=== PATIENT | female | born 1980 | race Caucasian/White ===

== ENCOUNTER → 2017-02-14 | Outpatient (CLI) | payer OTHER | LOC: HPND 08:29 | PROVIDERS: ATTEND Obstetrics & Gynecology | DX: O09.521 Supervision of elderly multigravida, first trimester (principal) | CPT/HCPCS: 36415; 76813 ==

== ENCOUNTER → 2017-03-21 | Outpatient (CLI) | payer OTHER | LOC: HPND 07:39 | PROVIDERS: ATTEND Obstetrics & Gynecology | DX: O09.521 Supervision of elderly multigravida, first trimester (principal); O26.891 Other specified pregnancy related conditions, first trimester | CPT/HCPCS: 76811 ==

== ENCOUNTER → 2017-05-10 | Outpatient (CLI) | payer OTHER | LOC: HPND 07:50 | PROVIDERS: ATTEND Obstetrics & Gynecology | DX: O09.522 Supervision of elderly multigravida, second trimester (principal); Z14.8 Genetic carrier of other disease | CPT/HCPCS: 76816 ==

== ENCOUNTER 2017-08-27 08:08 | Inpatient (IN) | payer OTHER ==
[2017-08-27] VITALS (73 sets, daily range): BP systolic 120–166; BP diastolic 69–101; PULSE 65–134; RESP 14–18; TEMP 97.2–98.3
[~2017-08-27] VITALS: Ht 177.8 cm; Wt 116.0 kg
[2017-08-27] MEDS ORDERED: MINERAL OIL 10 ML VIAL TOPICAL PRN (08:15)
[2017-08-27] MEDS ORDERED: LIDOCAINE HCL 1% 50 ML VIAL I-DERMAL PRN (08:15)
[2017-08-27] MEDS ORDERED: CITRIC ACID-SODIUM CITRATE LIQ 30 ML UDC PO SCH (08:15)
[2017-08-27] MEDS ORDERED: SODIUM CHLORID 0.9% 500 ML INJ 500 ML IV PRN (08:15)
[2017-08-27] MEDS ORDERED: LACTATED RINGER'S 1000 ML INJ 1,000 ML IV SCH (08:15)
[2017-08-27] MEDS ORDERED: LIDOCAINE HCL 1% 50 ML VIAL INFIL PRN (08:15)
[2017-08-27] MEDS ORDERED: LACTATED RINGER'S 1000 ML INJ 1,000 ML IV PRN (08:15)
--- NOTE | 2017-08-27 08:28 | HHI.HP ---
HPI Chief Complaint induction at 41 weeks Date Seen: Aug 27, 2017 Time Seen: 08:20 Travel History International Travel<30 Days: No Contact w/Intl Traveler<30Days: No Known Affected Area: No History of Present Illness HPI 37 yo G0 who is 41 weeks here for induction of labor. She was due 08/20/17 and has had very few contractions Weeks Gestation: 41 Para: 0 : 1 History Past Medical History Narrative Medical questionable HSV Obstetric History Obstetric History G0 Past Surgical History Narrative Surgical breast augment Family History Family History: Negative Social History Alcohol Use: No Tobacco Use: No Substance Abuse: No Allergies-Medications (Allergen,Severity, Reaction): Coded Allergies: Penicillins (Verified Allergy, Unknown, 08/27/17) Sulfa (Sulfonamide Antibiotics) (Verified Allergy, Unknown, 08/27/17) Review of Systems Except as stated in HPI: all other systems reviewed are Neg Physical Exam Narrative GENERAL: Well-nourished, well-developed patient. SKIN: Warm and dry. HEAD: Normocephalic and atraumatic. EYES: No scleral icterus. No injection or drainage. ENT: No nasal drainage noted. Mucous membranes pink. Airway patent. NECK: Supple, trachea midline. No JVD. CARDIOVASCULAR: Regular rate and rhythm without murmurs, gallops, or rubs. RESPIRATORY: Breath sounds equal bilaterally. No accessory muscle use. BREASTS: Bilateral exam showed no masses , no retractions, no nipple discharge. ABDOMEN/GI: Abdomen soft, non-tender, bowel sounds present, no rebound, no guarding Gravid to 41 weeks size Fundal Height: [-] GENITOURINARY: External Genitalia: intact and normal in appearance BUS glands: [-] Cervix: [-] Dilatation: 1 Effacement: 70 Station: -2 Presentation: vtx Membranes: [intact Uterine Contractions: no FHT's: Category: 1 Baseline: [-] Reactive: [-] Variability: [-] Decels: [-] EXTREMITIES: No cyanosis or edema. BACK: Nontender without obvious deformity. No CVA tenderness. NEUROLOGICAL: Awake and alert. Motor and sensory grossly within normal limits. Five out of 5 muscle strength in all muscle groups. Normal speech. Caprini VTE Risk Assessment Caprini VTE Risk Assessment: No/Low Risk (score <= 1) Caprini Risk Assessment Model Point Value = 1 Point Value = 2 Point Value = 3 Point Value = 5 Age 41-60 Minor surgery BMI > 25 kg/m2 Swollen legs Varicose veins or History of unexplained or recurrent spontaneous Oral contraceptives or hormone replacement Sepsis (< 1 month) Serious lung disease, including pneumonia (< 1 month) Abnormal pulmonary function Acute myocardial infarction Congestive heart failure (< 1 month) History of inflammatory bowel disease Medical patient at bed rest Age 61-74 Arthroscopic surgery Major open surgery (> 45 min) Laparoscopic surgery (> 45 min) Malignancy Confined to bed (> 72 hours) Immobilizing plaster cast Central venous access Age >= 75 History of VTE Family history of VTE Factor V Leiden Prothrombin [id number] Lupus anticoagulant Anticardiolipin antibodies Elevated serum homocysteine Heparin-induced thrombocytopenia Other congenital or acquired thrombophilia Stroke (< 1 month) Elective arthroplasty Hip, pelvis, or leg fracture Acute spinal cord injury (< 1 month) Prophylaxis Regimen Total Risk Factor Score Risk Level Prophylaxis Regimen 0-1 Low Early ambulation 2 Moderate Order ONE of the following: *Sequential Compression Device (SCD) *Heparin 5000 units SQ BID 3-4 Higher Order ONE of the following medications: *Heparin 5000 units SQ TID *Enoxaparin/Lovenox 40 mg SQ daily (WT < 150 kg, CrCl > 30 mL/min) *Enoxaparin/Lovenox 30 mg SQ daily (WT < 150 kg, CrCl > 10-29 mL/min) *Enoxaparin/Lovenox 30 mg SQ BID (WT < 150 kg, CrCl > 30 mL/min) AND/OR *Sequential Compression Device (SCD) 5 or more Highest Order ONE of the following medications: *Heparin 5000 units SQ TID (Preferred with Epidurals) *Enoxaparin/Lovenox 40 mg SQ daily (WT < 150 kg, CrCl > 30 mL/min) *Enoxaparin/Lovenox 30 mg SQ daily (WT < 150 kg, CrCl > 10-29 mL/min) *Enoxaparin/Lovenox 30 mg SQ BID (WT < 150 kg, CrCl > 30 mL/min) AND *Sequential Compression Device (SCD) Data Data Vital Signs Reviewed: Yes Orders Orders Admit To Inpatient (08/27/17 ) Code Status (08/27/17 08:15) Vital Signs (Adult) .Per protocol (08/27/17 08:15) Heart (08/27/17 08:15) Amnioinfusion (08/27/17 08:15) Urinary Catheter Management .ONCE (08/27/17 08:15) Lactated Ringer's 1000 Ml Inj (Lr 1000 M (08/27/17 08:15) Lactated Ringer's 1000 Ml Inj (Lr 1000 M (08/27/17 08:15) Sodium Chlorid 0.9% 500 Ml Inj (Ns 500 M (08/27/17 08:15) Sodium Chlor 0.9% 1000 Ml Inj (Ns 1000 M (08/27/17 08:35) Lidocaine 1% Inj (50 Ml) (Xylocaine 1% I (08/27/17 08:15) Citric Acid-Sodium Citrate Liq (Bicitra (08/27/17 08:15) Fentanyl Inj (Fentanyl Inj) (08/27/17 08:15) Fentanyl Inj (Fentanyl Inj) (08/27/17 08:15) Complete Blood Count With Diff (08/27/17 08:15) Hold Clot (08/27/17 08:15) Abo/Rh Blood Type (08/27/17 08:15) Urinalysis - C+S If Indicated (08/27/17 08:15) Drug Screen, Random Urine (08/27/17 08:15) Ob/Psych Drug Screen, Urine (08/27/17 08:15) Resp Oxygen Non Rebreathe Mask (08/27/17 ) ^ Epidural / Intrathecal Infus (08/27/17 08:15) Oxytocin 30 Units-500ml Premix (Pitocin (08/27/17 08:15) Lidocaine 1% Inj (50 Ml) (Xylocaine 1% I (08/27/17 08:15) Light Mineral Oil (Muri-Lube Oil) (08/27/17 08:15) Inpatient Certification (08/27/17 ) Specimen To Be Collected PRN (08/27/17 08:15) Specimen To Be Collected PRN (08/27/17 08:15) Group B Strep: Negative Assessment/Plan Problem List: (1) 41 weeks gestation of ICD Codes: Z3A.41 - 41 weeks gestation of Assessment and Plan induction for post dates Jamie Cisneros MD Aug 27, 2017 08:28
[2017-08-27] MEDS ORDERED: SODIUM CHLOR 0.9% 1000 ML INJ 1,000 ML IV PRN (08:35)
[2017-08-27] MEDS ORDERED: OXYTOCIN 30 UNITS-500ML PREMIX 500 ML IV ONE (09:00)
--- NOTE | 2017-08-27 09:09 | PD.LABORPN ---
Subjective Subjective doing well Objective Vital Signs Vital Signs Date Time Temp Pulse Resp B/P (MAP) Pulse Ox O2 Delivery O2 Flow Rate FiO2 08/27/17 08:52 74 151/101 (118) Objective Pelvic Exam: Cervix: [-] Dilatation: 2 Effacement: 90 Station: [-] Presentation: vtx Membranes: srom clear Uterine Contractions: [-] FHT's: Category: 1 Baseline: [-] Reactive: [-] Variability: [-] Decels: [-] Weeks Gestation: 41 Gest Age Assessed Date: Aug 27, 2017 Gest Age Assessed Time: 09:00 Pt started active labor?: Yes Active labor start date: Aug 27, 2017 Active labor start time: 09:00 Medical induction of labor?: Yes Medical induction start date: Aug 27, 2017 Medical induction start time: 09:00 Artificial rupture of membrane: Yes Artificial ROM date: Aug 27, 2017 Artifical ROM time: 09:00 Assessment/Plan Problem List: (1) 41 weeks gestation of ICD Codes: Z3A.41 - 41 weeks gestation of Jamie Cisneros MD Aug 27, 2017 09:09
[2017-08-27 09:15] LABS: BASOPHIL % 0.4 % (0.0-2.0); EOSINOPHIL # 0.3 TH/MM3 (0-0.4); HEMATOCRIT 32.4 % (35.0-46.0); LYMPHOCYTE # 1.8 TH/MM3 (1.0-4.8); MEAN CELL VOLUME 86.2 FL (80.0-100.0); MEAN CORPUSCULAR HEMOGLOBIN 29.2 PG (27.0-34.0); MEAN CORPUSCULAR HGB CONC 33.9 % (32.0-36.0); MEAN PLATELET VOLUME 9.5 FL (7.0-11.0); MONO % 8.9 % (0.0-8.0); MONOCYTE # 0.8 TH/MM3 (0-0.9); NEUT % 67.7 % (16.0-70.0); PLATELET COUNT 217 TH/MM3 (150-450); RED BLOOD COUNT 3.75 MIL/MM3 (4.00-5.30); RED CELL DISTRIBUTION WIDTH 13.3 % (11.6-17.2); WHITE BLOOD COUNT 8.8 TH/MM3 (4.0-11.0)
[2017-08-27] MEDS ORDERED: OXYTOCIN 30 UNITS-500ML PREMIX 500 ML IV PRN (09:15)
[2017-08-27 09:17] LABS: BACTERIA, URINE FEW /hpf; BILIRUBIN, URINE NEG (NEG); BLOOD, URINE NEG (NEG); GLUCOSE,URINE NEG (NEG); KETONE, URINE NEG (NEG); NITRITE,URINE NEG (NEG); PH, URINE 6.5 (5.0-8.5); SQUAMOUS EPITHELIAL CELL URINE 2 /hpf (0-5); URINE COLOR YELLOW (YELLW/STRAW); URINE LEUKOCYTE ESTERASE NEG (NEG)
[2017-08-27] MEDS ORDERED: fentaNYL 2MCG-BUPIV 0.125% INJ 100 ML ONE (11:32)
[2017-08-27] MEDS ORDERED: ePHEDrine/NS 25 MG/5 ML SYRINGE IV PUSH PRN (14:15)
[2017-08-27] MEDS ORDERED: DO NOT ADMINISTER ANTICOAGULANTS PRN (14:15)
[2017-08-27] MEDS ORDERED: fentaNYL 2MCG-BUPIV 0.125% 100 ML EPIDURAL SCH (14:15)
[2017-08-27] MEDS ORDERED: NO SYSTEM NARCOTICS PRN (14:15)
--- NOTE | 2017-08-27 19:25 | PD.OB.DELI ---
Weeks gestation: 41 Gest age assessed date: Aug 27, 2017 Gest age assessed time: 09:00 Pt started active labor?: Yes Active labor start date: Aug 27, 2017 Active labor start time: 09:00 Medical induction of labor?: Yes Medical induction start date: Aug 27, 2017 Medical induction start time: 09:00 Artificial rupture of membrane: Yes Artificial ROM date: Aug 27, 2017 Artifical ROM time: 09:00 Anesthesia: Epidural Episiotomy: Right mediolateral Vaginal Delivery: Normal Presentation: Occiput anterior Nuchal Cord: x1 Delayed cord clamping (45 sec): Yes Infant: Male, Single Delivery date: Aug 27, 2017 Delivery time: 18:58 One Minute : 8 Five Minute : 9 Placenta: Spontaneous delivery, Intact, 3 vessel cord Laceration: Episiotomy, 2 deg Repair: Chromic running Estimated blood loss: 300 Jamie Cisneros MD Aug 27, 2017 19:25
[2017-08-27] MEDS ORDERED: ONDANSETRON ODT 4 MG TAB PO PRN (19:30)
[2017-08-27] MEDS ORDERED: OXYTOCIN 30 UNITS-500ML PREMIX 500 ML IV SCH (19:30)
[2017-08-27] MEDS ORDERED: DOCUSATE SODIUM 50 MG/SENNA 8.6 MG TAB PO PRN (19:30)
[2017-08-27] MEDS ORDERED: WITCH HAZEL 50%/GLYCERIN 12.5% 40 PAD JAR TOPICAL PRN (19:30)
[2017-08-27] MEDS ORDERED: ZOLPIDEM TARTRATE 5 MG TAB PO PRN (19:30)
[2017-08-27] MEDS ORDERED: BENZOCAINE 20% TOPICAL SPRAY 60 ML CAN TOPICAL PRN (19:30)
[2017-08-27] MEDS ORDERED: oxyCODONE/ACETAMINOPHEN 5 MG/325 MG TAB PO PRN ×2 (19:30)
[2017-08-27] MEDS ORDERED: ALUMINUM/MAGNESIUM/SIMETH 30 ML CUP PO PRN (19:30)
[2017-08-27] MEDS ORDERED: SODIUM CHLORIDE 0.9% FLUSH 10 ML FLUSH IV FLUSH PRN (19:30)
[2017-08-27] MEDS ORDERED: MEASLES, MUMPS, RUBELLA VACCINE 0.5 ML VIAL SQ ONE (20:45)
[2017-08-27] MEDS ORDERED: DIPHTH/TETANUS/ACEL PERTUSSIS (BOOSTER) 0.5 ML VIAL/PFS IM ONE (20:45)
[2017-08-27] MEDS: IBUPROFEN 800 MG TAB PO PRN (20:57)
[2017-08-27] MEDS ORDERED: SODIUM CHLORIDE 0.9% FLUSH 10 ML FLUSH IV FLUSH SCH (21:00)
[2017-08-28] MEDS: ACETAMINOPHEN 325 MG TAB PO PRN ×4 (04:49→22:25)
[2017-08-28] MEDS: IBUPROFEN 800 MG TAB PO PRN ×3 (04:50→22:25)
[2017-08-28 08:00] VITALS: BP 118/76; PULSE 76; RESP 18; TEMP 97.9
--- NOTE | 2017-08-28 13:06 | HHI.OB ---
Subjective Post Day: 1 Remarks doing well breast feeding Objective Vitals/I&O Vital Signs Date Time Temp Pulse Resp B/P (MAP) Pulse Ox O2 Delivery O2 Flow Rate FiO2 08/28/17 08:00 97.9 76 18 118/76 (90) 08/27/17 23:46 14 08/27/17 23:45 82 151/76 (101) 08/27/17 23:00 98.3 86 16 08/27/17 23:00 163/79 (107) 08/27/17 22:14 86 139/69 (92) 08/27/17 21:46 78 144/81 (102) 08/27/17 21:31 89 08/27/17 21:20 81 17 156/75 (102) 08/27/17 21:01 92 138/98 (111) 08/27/17 20:56 98.2 17 08/27/17 20:53 92 154/71 (98) 08/27/17 20:46 89 08/27/17 20:31 94 08/27/17 20:16 89 08/27/17 20:01 80 154/85 (108) 08/27/17 19:52 17 08/27/17 19:46 93 143/84 (103) 08/27/17 19:22 95 166/86 (112) 08/27/17 18:46 95 141/76 (97) 08/27/17 17:55 118 08/27/17 17:46 134 120/91 (101) 08/27/17 17:15 99 157/83 (107) 08/27/17 17:00 93 133/75 (94) 08/27/17 16:47 92 134/79 (97) 08/27/17 16:31 76 140/90 (107) 08/27/17 16:15 79 139/90 (106) 08/27/17 16:00 71 147/89 (108) 08/27/17 15:45 72 120/75 (90) 08/27/17 15:30 73 121/73 (89) 08/27/17 15:22 97.2 08/27/17 15:22 18 08/27/17 15:15 71 134/77 (96) 08/27/17 15:00 73 127/78 (94) 08/27/17 14:55 18 08/27/17 14:47 71 133/89 (104) 08/27/17 14:31 72 140/89 (106) 08/27/17 14:30 18 08/27/17 14:16 72 147/81 (103) 08/27/17 14:10 67 148/85 (106) 08/27/17 14:08 18 08/27/17 14:01 67 141/75 (97) 08/27/17 13:57 18 08/27/17 13:55 67 138/82 (100) 08/27/17 13:51 71 134/77 (96) 08/27/17 13:50 73 08/27/17 13:45 71 142/86 (104) 08/27/17 13:45 70 08/27/17 13:45 18 08/27/17 13:41 71 140/80 (100) 08/27/17 13:40 70 08/27/17 13:36 67 139/79 (99) 08/27/17 13:35 67 08/27/17 13:30 71 135/90 (105) 08/27/17 13:25 68 133/76 (95) 08/27/17 13:20 68 138/82 (100) 08/27/17 13:15 17 08/27/17 13:15 67 136/81 (99) 08/27/17 13:10 65 08/27/17 13:10 141/77 (98) Objective Remarks GENERAL: Well-nourished, well-developed patient. ABDOMEN/GI: Abdomen soft, non-tender. Fundus: Firm, non-tender at umbilicus. GENITOURINARY: Light to moderate bleeding. EXTREMITIES: No cyanosis or edema, non-tender, without signs of DVT. Medications and IVs Current Medications Medications (Trade) Dose Ordered Sig/Nikolas Route Start Time Stop Time Status Last Admin Miscellaneous Information No systemic narcotics to be given except... UNSCH PRN .XX 08/27/17 14:15 08/28/17 14:14 Miscellaneous Information DO NOT ADMINISTER ANY ANTICOAGUL... UNSCH PRN .XX 08/27/17 14:15 08/28/17 14:14 (NS Flush) 2 ml BID IV FLUSH 08/27/17 21:00 (NS Flush) 2 ml UNSCH PRN IV FLUSH 08/27/17 19:30 08/27/17 20:56 (Tylenol) 650 mg Q4H PRN PO 08/27/17 19:30 08/28/17 08:59 (Motrin) 800 mg Q8H PRN PO 08/27/17 19:30 08/28/17 04:50 (Percocet 5-325 Mg) 1 tab Q4H PRN PO 08/27/17 19:30 (Percocet 5-325 Mg) 2 tab Q4H PRN PO 08/27/17 19:30 (Americaine 20% Top Spr) 1 spray Q4H PRN TOPICAL 08/27/17 19:30 08/27/17 22:52 (Tucks Pads) 1 applic QID PRN TOPICAL 08/27/17 19:30 08/27/17 22:52 (Ghazala-Colace) 2 tab Q12H PRN PO 08/27/17 19:30 (Ambien) 5 mg HS PRN PO 08/27/17 19:30 (Mag-Al Plus Susp Liq) 15 ml Q8H PRN PO 08/27/17 19:30 (Zofran Odt) 4 mg Q6H PRN PO 08/27/17 19:30 Assessment/Plan Problem List: (1) 41 weeks gestation of ICD Codes: Z3A.41 - 41 weeks gestation of (2) Spontaneous vaginal delivery ICD Codes: O80 - Encounter for full-term uncomplicated delivery Assessment and Plan successful doing well Jamie Cisneros MD Aug 28, 2017 13:06
[2017-08-28] MEDS ORDERED: OXYC1TAB63 PO (13:07)
--- NOTE | 2017-08-28 13:08 | HHI.DCPOC ---
Discharge Care Plan Diagnosis: (1) Spontaneous vaginal delivery Report Symptoms to Your Doctor -Temperature above 100.5 degrees -Redness, of incision or excessive or foul smelling drainage -Unusual pain or calf pain -Increased vaginal bleeding -Painful or difficulty urinating -Feelings of extreme sadness or anxiety after 2 weeks Goals to Promote Your Health * To prevent worsening of your condition and complications * To maintain your health at the optimal level Directions to Meet Your Goals Take your medications as prescribed Follow your dietary instruction Follow activity as directed Ensure plenty of rest for recovery Drink fluids for hydration Keep your appointments as scheduled Take your immunizations and boosters as scheduled If your symptoms worsen call your PCP, if no PCP go to Urgent Care Center or Emergency Room Smoking is Dangerous to Your Health. Avoid second hand smoke Call the 24-hour crisis hotline for domestic abuse at Jamie Cisneros MD Aug 28, 2017 13:08
[2017-08-28 20:40] VITALS: BP 145/74; PULSE 82; RESP 18; TEMP 97.9
[2017-08-29] MEDS: IBUPROFEN 800 MG TAB PO PRN (06:11)
[2017-08-29] MEDS: ACETAMINOPHEN 325 MG TAB PO PRN (06:11)
--- NOTE | 2017-08-29 07:41 | HHI.OB ---
Subjective Post Day: 2 Remarks doing well Objective Vitals/I&O Vital Signs Date Time Temp Pulse Resp B/P (MAP) Pulse Ox O2 Delivery O2 Flow Rate FiO2 08/28/17 20:40 97.9 82 18 145/74 (97) 08/28/17 08:00 97.9 76 18 118/76 (90) Objective Remarks GENERAL: Well-nourished, well-developed patient. ABDOMEN/GI: Abdomen soft, non-tender. Fundus: Firm, non-tender at umbilicus. GENITOURINARY: Light to moderate bleeding. EXTREMITIES: No cyanosis or edema, non-tender, without signs of DVT. Medications and IVs Current Medications Medications (Trade) Dose Ordered Sig/Nikolas Route Start Time Stop Time Status Last Admin (NS Flush) 2 ml BID IV FLUSH 08/27/17 21:00 (NS Flush) 2 ml UNSCH PRN IV FLUSH 08/27/17 19:30 08/27/17 20:56 (Tylenol) 650 mg Q4H PRN PO 08/27/17 19:30 08/29/17 06:11 (Motrin) 800 mg Q8H PRN PO 08/27/17 19:30 08/29/17 06:11 (Percocet 5-325 Mg) 1 tab Q4H PRN PO 08/27/17 19:30 (Percocet 5-325 Mg) 2 tab Q4H PRN PO 08/27/17 19:30 (Americaine 20% Top Spr) 1 spray Q4H PRN TOPICAL 08/27/17 19:30 08/27/17 22:52 (Tucks Pads) 1 applic QID PRN TOPICAL 08/27/17 19:30 08/27/17 22:52 (Ghazala-Colace) 2 tab Q12H PRN PO 08/27/17 19:30 (Ambien) 5 mg HS PRN PO 08/27/17 19:30 (Mag-Al Plus Susp Liq) 15 ml Q8H PRN PO 08/27/17 19:30 (Zofran Odt) 4 mg Q6H PRN PO 08/27/17 19:30 Assessment/Plan Problem List: (1) 41 weeks gestation of ICD Codes: Z3A.41 - 41 weeks gestation of (2) Spontaneous vaginal delivery ICD Codes: O80 - Encounter for full-term uncomplicated delivery Assessment and Plan doing well, DC home Jamie Cisneros MD Aug 29, 2017 07:41
--- NOTE | 2017-08-29 07:43 | HHI.DS ---
Admission Date Aug 27, 2017 at 08:08 Discharge Date: Aug 29, 2017 Admitting Diagnosis Diagnosis: (1) Spontaneous vaginal delivery ICD Codes: O80 - Encounter for full-term uncomplicated delivery Delivery Date: Aug 27, 2017 Vaginal Delivery: Normal, Spontaneous Infant: Male, Single Brief History 37 yo G0 who is 41 weeks here for induction of labor. She was due 08/20/17 and has had very few contractions Hospital Course doing well, healing well Pt Condition on Discharge: Good Discharge Disposition: Discharge Home Discharge Instructions Diet Instructions: As Tolerated, No Restrictions Activities You Can Perform: Pelvic Rest Activities to Avoid: Driving for 24 hrs Follow up Referrals: MEDICAL RECORD ASSISTANT - 2 Weeks @ [facility] with Jamie Cisneros MD New Medications: Oxycodone HCl/Acetaminophen (Oxycodone-Acetaminophen 5-325) 5 Mg-325 Mg Tablet 1 TAB PO Q4H PRN for PAIN SCALE 3 TO 5, #20 TAB 0 Refills Jamie Cisneros MD Aug 29, 2017 07:43
[2017-08-29 08:25] VITALS: BP 131/73; PULSE 81; RESP 17; TEMP 97.8
[2017-08-29 09:00] VITALS: BP 131/73; PULSE 81
[2017-08-29] MEDS ORDERED: DIPHTH/TETANUS/ACEL PERTUSSIS (BOOSTER) 0.5 ML VIAL/PFS IM ONE (11:45)
== END 2017-08-29 13:15 | disposition home or self-care (01) | DRG 775 ==
LOC: H2EA 08:08 → H1EA 22:39
PROVIDERS: ADMIT Obstetrics & Gynecology; ATTEND Obstetrics & Gynecology
PROC: 10E0XZZ Delivery of Products of Conception, External Approach (ICD-10-PCS; principal; 2017-08-27)
PROC: 10907ZC Drainage of Amniotic Fluid, Therapeutic from Products of Conception, Via Natural or Artificial Opening (ICD-10-PCS; 2017-08-27)
PROC: 3E033VJ Introduction of Other Hormone into Peripheral Vein, Percutaneous Approach (ICD-10-PCS; 2017-08-27)
PROC: 00HU33Z Insertion of Infusion Device into Spinal Canal, Percutaneous Approach (ICD-10-PCS; 2017-08-27)
PROC: 3E0R3BZ Introduction of Anesthetic Agent into Spinal Canal, Percutaneous Approach (ICD-10-PCS; 2017-08-27)
PROC: 0W8NXZZ Division of Female Perineum, External Approach (ICD-10-PCS; 2017-08-27)
DX: O48.0 Post-term pregnancy (principal); O69.81X0 Labor and delivery complicated by cord around neck, without compression, not applicable or unspecified; Z37.0 Single live birth; Z3A.41 41 weeks gestation of pregnancy; Z23 Encounter for immunization
CPT/HCPCS: 59025; 80307; 81001; 85025; 86900; 86901; J2590; J7120

== ENCOUNTER 2017-09-29 09:18 | Emergency (ER) | payer OTHER ==
[~2017-09-29] VITALS: Ht 177.8 cm; Wt 97.0 kg
[~2017-09-29 09:18] MED LIST: OXYC1TAB63 PO
[2017-09-29 09:21] VITALS: BP 125/78; PULSE 84; RESP 16; TEMP 97.8; O2SAT 100
[2017-09-29] MEDS ORDERED: birth control pills (09:38)
--- NOTE | 2017-09-29 09:56 | PD ---
HPI Chief Complaint: Musculoskeletal Complaint Time Seen by Provider: 09:43 Travel History International Travel<30 days: No Contact w/Intl Traveler<30days: No Traveled to known affect area: No History of Present Illness HPI The patient was seen and examined in the presence of the nurse. This patient complains of an area of pain and redness in her right lower leg. Duration 2 days. Severity is moderate. She is 1 month . No history of DVT. No leg injury. She is worried about a blood clot. She takes no blood thinners. Symptoms have no alleviating factors. No exacerbating factors. PFSH Past Medical History Medical History: Denies Significant Hx Hx Anticoagulant Therapy: No Cardiovascular Problems: No Chemotherapy: No Cerebrovascular Accident: No Diabetes: No Respiratory: No ?: Not LMP: had a baby a month ago Past Surgical History Surgical History: No Previous Surgery Hysterectomy: No Social History Alcohol Use: No Tobacco Use: No Substance Use: No Allergies-Medications (Allergen,Severity, Reaction): Coded Allergies: Penicillins (Verified Allergy, Unknown, 08/27/17) Sulfa (Sulfonamide Antibiotics) (Verified Allergy, Unknown, 08/27/17) Reported Meds & Prescriptions Reported Meds & Active Scripts Active Reported [ control pills] Review of Systems General / Constitutional: No: Fever Eyes: No: Visual changes HENT: No: Headaches Cardiovascular: No: Chest Pain or Discomfort Respiratory: No: Shortness of Breath Gastrointestinal: No: Abdominal Pain Genitourinary: No: Dysuria Musculoskeletal: Positive: Myalgias, Pain Skin: No Rash Neurologic: No: Weakness Psychiatric: No: Depression Endocrine: No: Polydipsia Hematologic/Lymphatic: No: Easy Bruising Physical Exam Narrative GENERAL: Well-nourished, well-developed patient in no apparent distress. SKIN: Focused skin assessment reveals no rash and nodules. Skin is Warm and dry. HEAD: Atraumatic. Normocephalic. EYES: Pupils equal and round. No scleral icterus. No injection or drainage. ENT: No nasal bleeding or discharge. Mucous membranes pink and moist. NECK: Trachea midline. No JVD. CARDIOVASCULAR: Regular rate and rhythm. No murmur appreciated. RESPIRATORY: No accessory muscle use. Clear to auscultation. Breath sounds equal bilaterally. GASTROINTESTINAL: Abdomen soft, non-tender, nondistended. Hepatic and splenic margins not palpable. MUSCULOSKELETAL: No obvious deformities. No clubbing. No cyanosis. No edema. There is a area of erythema and tenderness to the medial proximal right lower leg to the side of the calf. Actual calf is nontender. NEUROLOGICAL: Awake and alert. No obvious cranial nerve deficits. Motor grossly within normal limits. Normal speech. PSYCHIATRIC: Appropriate mood and affect; insight and judgment normal. Data Data Last Documented VS Vital Signs Date Time Temp Pulse Resp B/P (MAP) Pulse Ox O2 Delivery O2 Flow Rate FiO2 09/29/17 09:21 97.8 84 16 125/78 (94) 100 Orders Orders Us Leg Venous Doppler (09/29/17 ) [facility] Medical Decision Making Medical Screen Exam Complete: Yes Emergency Medical Condition: Yes Medical Record Reviewed: Yes Differential Diagnosis DVT, superficial thrombophlebitis, cellulitis Narrative Course I have reviewed the patient's electronic medical record. Patient delivered her child 1 month ago here Patient is and on control pills so at increased risk for DVT. Would not be appropriate for d-dimer given her clinical picture is not low risk. I have ordered ultrasound of the right lower leg which is normal Patient is no DVT. Stable for outpatient follow-up Diagnosis Primary Impression: Superficial thrombophlebitis during puerperium, Additional Instructions: The patient was advised to follow up with their physician and return if they worsen. Med/Other Pt SpecificInfo: Other Disposition: 01 DISCHARGE HOME Condition: Stable Jaime Govea MD Sep 29, 2017 09:56
--- NOTE | 2017-09-29 11:16 | RADRPT ---
EXAM DATE/TIME: 09/29/2017 10:42 [place] COMPARISON: No previous studies available for comparison. INDICATIONS : Right leg swelling. MEDICAL HISTORY : Right leg pain SURGICAL HISTORY : None. ENCOUNTER: Initial ACUITY: 1 day PAIN SCORE: 6/10 LOCATION: Right leg. TECHNIQUE: Venous ultrasound of the leg was performed from the inguinal ligament to the proximal calf. Real-lori e, color Doppler and spectral tracing, compression and augmentation techniques were used. FINDINGS: There is normal compressibility of the deep venous system from the inguinal region to the proximal ca lf. No echogenic clot is seen in the lumen of the common femoral, femoral, popliteal, and posterior tibial veins. There is a normal response of the venous system to proximal and distal augmentation an d respiration. CONCLUSION: No evidence of DVT. Ursula Christine MD on September 29, 2017 at 11:13 Board Certified Radiologist. This report was verified electronically.
[2017-09-29 13:55] VITALS: BP 133/74
== END 2017-09-29 14:16 | disposition home or self-care (01) ==
LOC: NEPD 09:18
DX: O87.0 Superficial thrombophlebitis in the puerperium (principal); Z79.3 Long term (current) use of hormonal contraceptives; Z88.0 Allergy status to penicillin; Z88.2 Allergy status to sulfonamides
CPT/HCPCS: 93971; 99284